=== PATIENT | female | born 2000 | race Caucasian/White ===

== ENCOUNTER 2023-06-14 15:43 | Outpatient (CLI) | payer BC, SELFPAY ==
--- NOTE | 2023-06-14 16:00 | CRLHL7_ITS ---
For Patients: As a result of the Century Cures Act, medical imaging exams and procedure reports are released immediately into your electronic medical record. You may view this report before your referring provider. If you have questions, please contact your health care provider. INDICATION: Palpable lump right lateral neck. TECHNIQUE: Directed soft tissue ultrasound of the right neck. FINDINGS: There is a fairly well-circumscribed oval-shaped 1.2 x 0.3 x 1.3 cm lesion likely a lymph node with a hypoechoic cortex and a hyperechoic center. This appears normal. IMPRESSION : Normal sized normal-appearing right lateral neck lymph node. Dictated by Jered Bear MD @ 06/16/2023 9:46:55 PM (Electronically Signed)
== END 2023-06-14 15:44 | disposition home or self-care (01) ==
LOC: US 15:44
PROVIDERS: PCP Physician Assistant Medical; Visit Provider Physician Assistant Medical
DX: R22.1 Localized swelling, mass and lump, neck (principal)
CPT/HCPCS: 76536